=== PATIENT | male | born 1995 | race Caucasian/White ===

== ENCOUNTER 2021-06-25 17:04 | Emergency (ER) | payer OTHER ==
[~2021-06-25] VITALS: Ht 177.8 cm; Wt 72.6 kg
--- NOTE | 2021-06-25 19:02 | NUR ---
Dr. Kendrick at bedside for MSE
[2021-06-25] MEDS ORDERED: ONDA4TAB5 PO (19:13)
--- NOTE | 2021-06-25 19:26 | NUR ---
Patient discharged to home in stable condition. Written and verbal after care instructions given. Patient verbalizes understanding of instructions. Stressed follow up or return to ER for worsening s/s.
[2021-06-25 19:27] VITALS: BP 144/77
== END 2021-06-25 19:27 | disposition home or self-care (01) ==
LOC: ER 17:09
DX: Z04.1 Encounter for examination and observation following transport accident (principal); R51.9 Headache, unspecified; J45.909 Unspecified asthma, uncomplicated
CPT/HCPCS: A4663